=== PATIENT | female | born 1990 | race Hispanic/Latino ===

== ENCOUNTER 2017-09-19 20:28 | Emergency (ER) | payer OTHER ==
[2017-09-19 21:23] LABS: APPEARANCE,URINE Cloudy (CLEAR); BILIRUBIN,URINE Negative (NEGATIVE); COLOR,URINE Dark Yellow (YELLOW); GLUCOSE, URINE (UA) Negative (NEGATIVE); KETONES,URINE Negative (NEGATIVE); LEUKOCYTE ESTERASE ,URINE Large (NEGATIVE); NITRATE,URINE Positive (NEGATIVE); OCCULT BLOOD,URINE Small (NEGATIVE); PH,URINE 6.5 (5.0-8.0); PROTEIN,URINE POS 2+ (NEGATIVE)
[2017-09-19 21:29] LABS: BACTERIA,URINE Few /HPF (None Seen); WBC,URINE 51-100 /HPF (0-1)
[2017-09-19 21:30] LABS: SQUAMOUS EPITHELIAL CELL,UR Few /HPF (0-2)
== END 2017-09-19 21:25 | disposition home or self-care (01) ==
LOC: EDH 20:28
DX: K52.9 Noninfective gastroenteritis and colitis, unspecified (principal); Z72.0 Tobacco use; Z98.890 Other specified postprocedural states
CPT/HCPCS: 81001

== ENCOUNTER 2018-10-22 18:57 | Emergency (ER) | payer OTHER ==
[2018-10-22] MEDS ORDERED: KETOROLAC TROMETHAMINE 60 MG/2 ML VIAL ONE (19:38)
[2018-10-22 19:40] LABS: APPEARANCE,URINE Clear (CLEAR); BILIRUBIN,URINE Negative (NEGATIVE); COLOR,URINE Yellow (YELLOW); GLUCOSE, URINE (UA) Negative (NEGATIVE); HCG,QUAL RESULT NEGATIVE (NEGATIVE); KETONES,URINE Negative (NEGATIVE); LEUKOCYTE ESTERASE ,URINE Negative (NEGATIVE); NITRATE,URINE Negative (NEGATIVE); OCCULT BLOOD,URINE Negative (NEGATIVE); PH,URINE 6.5 (5.0-8.0); PROTEIN,URINE Negative (NEGATIVE)
== END 2018-10-22 20:06 | disposition home or self-care (01) ==
LOC: EDH 18:57
DX: M54.6 Pain in thoracic spine (principal); F41.9 Anxiety disorder, unspecified; Z87.891 Personal history of nicotine dependence
CPT/HCPCS: 72072; 81003; 81025; 96372; 99285; J1885

== ENCOUNTER 2020-12-03 19:29 | Emergency (ER) | payer OTHER ==
[~2020-12-03] VITALS: Ht 162.6 cm; Wt 81.6 kg
[2020-12-03 19:43] VITALS: BP 114/82
[2020-12-03 22:57] VITALS: BP 115/80
[2020-12-03] MEDS ORDERED: IBUP-1552 PO (23:30)
[2020-12-03] MEDS: HYDROCODONE/ACETAMINOPHEN 10/325 MG TAB PO ONE (23:33)
[2020-12-03] MEDS: CYCLOBENZAPRINE HCL 10 MG TABLET PO ONE (23:33)
== END 2020-12-03 23:43 | disposition home or self-care (01) ==
LOC: EDH 19:29
DX: S40.012A Contusion of left shoulder, initial encounter (principal); V49.49XA Driver injured in collision with other motor vehicles in traffic accident, initial encounter; Y93.89 Activity, other specified; Y92.413 State road as the place of occurrence of the external cause; Y99.8 Other external cause status
CPT/HCPCS: 71045

== ENCOUNTER 2021-08-30 14:53 | Emergency (ER) | payer MEDICAID, OTHER ==
[~2021-08-30] VITALS: Ht 167.6 cm; Wt 93.9 kg
[~2021-08-30 14:53] MED LIST: IBUP-1552 PO
[2021-08-30 14:55] VITALS: BP 127/83
[2021-08-30] MEDS ORDERED: LIDOCAINE PF 100MG/5ML (2%) SYRINGE 5ML ONE (16:13)
[2021-08-30] MEDS ORDERED: CIPR7.5D OT (16:18)
== END 2021-08-30 16:26 | disposition home or self-care (01) ==
LOC: EDH 14:53
DX: H60.92 Unspecified otitis externa, left ear (principal); Z79.1 Long term (current) use of non-steroidal anti-inflammatories (NSAID)
CPT/HCPCS: 99283; J3490; J2001